=== PATIENT | female | born 1950 | race African-American/Black ===

== ENCOUNTER 2017-01-18 17:29 | Inpatient (IN) | payer OTHER ==
[~2017-01-18] VITALS: Ht 149.9 cm; Wt 63.5 kg
[2017-01-18 17:29] VITALS: BP_SYST 139
[2017-01-18] MEDS ORDERED: NACL 0.9% 1,000 ML IV SCH (17:33)
[2017-01-18] MEDS ORDERED: IPRATROPIUM/ALBUTEROL SULFATE 3 ML AMPUL.NEB INH ONE (17:45)
[2017-01-18] MEDS ORDERED: DEXTROSE 50% JECT 50 ML DISP.SYRIN IVP ONE (17:45)
[2017-01-18] MEDS ORDERED: LORazepam 2 MG/ML VIAL (FOR ER USE) IVP ONE (18:00)
[2017-01-18 18:50] LABS: HEMOGLOBIN 7.8 g/dL (12.0-16.0)
[2017-01-18 18:59] LABS: MEAN CORPUSCULAR HEMOGLOBIN 28 pg (27-31); MEAN CORPUSCULAR HGB CONC 33 % (32-36); MEAN CORPUSCULAR VOLUME 86 fL (79.0-98.0); RED CELL DISTRIBUTION WIDTH 19.6 % (9.0-15.0); WHITE BLOOD COUNT (AUTO) 15.7 K/uL (4.8-10.8)
[2017-01-18 19:02] LABS: PLATELET COUNT (AUTO) 123 K/uL (130-430)
[2017-01-18 19:05] LABS: INR 1.1 (0.8-1.2); PROTHROMBIN TIME 12.4 SECS (9.5-12.5)
[2017-01-18 19:14] LABS: CALCIUM 7.1 mg/dL (8.4-11.0); CREATININE 2.3 mg/dL (0.55-1.30); POTASSIUM 4.4 mmol/L (3.5-5.1)
[2017-01-18 19:14] LABS: BAND % (MANUAL) 5 % (0-6); BASOPHILS % (MANUAL) 0 % (0-2); EOSINOPHILS % (MANUAL) 0 % (0-7); LYMPHOCYTES % (MANUAL) 3 % (20-46); MONOCYTES % (MANUAL) 1 % (0-11)
[2017-01-18] MEDS ORDERED: NACL 0.9% 1,500 ML IV ONE (19:15)
[2017-01-18] MEDS ORDERED: cefTRIAXone 1 GM IVPB PREMIX 50 ML IV ONE ×2 (19:15→19:21)
[2017-01-18 19:33] LABS: ALBUMIN 2.1 g/dL (3.4-4.8); TOTAL BILIRUBIN 0.4 mg/dL (0.0-1.0); TOTAL PROTEIN, SERUM 6.7 g/dL (6.4-8.3)
[2017-01-18] MEDS ORDERED: IPRATROPIUM/ALBUTEROL SULFATE 3 ML AMPUL.NEB INH PRN (19:45)
[2017-01-18 19:55] LABS: BILIRUBIN,URINE NEGATIVE (NEGATIVE); CLARITY/URINE SL HAZY (CLEAR); COLOR,URINE YELLOW (YELLOW); GLUCOSE,URINE NEGATIVE (NEGATIVE); KETONES,URINE NEGATIVE (NEGATIVE); LEUKOCYTE ESTERASE ,URINE NEGATIVE (NEGATIVE); NITRITE, URINE NEGATIVE (NEGATIVE); PH,URINE 7.5 (5.0-8.0); PROTEIN URINE 1+ (NEGATIVE); UROBILINOGEN,URINE 0.2 (0.2-1.0)
[2017-01-18 20:03] LABS: BLOOD, URINE TRACE (NEGATIVE)
[2017-01-18 20:07] LABS: RBC,URINE NONE SEEN /HPF (0-3)
[2017-01-18 20:08] LABS: BACTERIA,URINE FEW /HPF (None Seen); WBC,URINE 0-3 /HPF (0-3); YEAST,URINE Moderate /HPF (None Seen)
[2017-01-18 20:09] LABS: MUCUS,URINE None Seen /LPF (None Seen)
[2017-01-18] MEDS ORDERED: ASCO500T20 PO (20:18)
[2017-01-18] MEDS ORDERED: PROC10TA PO (20:19)
[2017-01-18] MEDS ORDERED: DOCU250C PO (20:19)
[2017-01-18] MEDS ORDERED: APIX2.5T PO (20:20)
[2017-01-18] MEDS ORDERED: IPRA3AMP9 INH ×2 (20:20)
[2017-01-18] MEDS ORDERED: FERR-57 PO (20:21)
[2017-01-18] MEDS ORDERED: INSU100V11 SQ (20:21)
[2017-01-18] MEDS ORDERED: LORA-258 PO (20:22)
[2017-01-18] MEDS ORDERED: MELA3TAB55 PO (20:23)
[2017-01-18] MEDS ORDERED: MULT PO (20:23)
[2017-01-18] MEDS ORDERED: ANT30 PO (20:24)
[2017-01-18] MEDS ORDERED: HYDR-4100 PO (20:25)
[2017-01-18] MEDS ORDERED: OXYB5TAB11 PO (20:26)
[2017-01-18] MEDS ORDERED: ACET-2165 PO (20:27)
[2017-01-18] MEDS ORDERED: NAPH1POW3 PO (20:28)
[2017-01-18] MEDS ORDERED: SSNOVOLOG SUBCUT (20:30)
[2017-01-18 21:10] VITALS: BP_SYST 135
[2017-01-18] MEDS ORDERED: MORPHINE 2 MG/ML INJ. SYRINGE IVP PRN (21:15)
[2017-01-18] MEDS ORDERED: HYDROcodone/ACETAMIN 10-325 MG TAB PO PRN (21:15)
[2017-01-18] MEDS ORDERED: ACETAMINOPHEN 325 MG TABLET PO ONE (21:15)
[2017-01-18 22:00] VITALS: BP_SYST 133
[2017-01-18] MEDS ORDERED: D5W 1,000 ML IV PRN (22:38)
[2017-01-18] MEDS ORDERED: GLUCOSE 15 GM GEL (in 37.5 GM TUBE) PO PRN ×2 (22:45)
[2017-01-18] MEDS ORDERED: DEXTROSE 50% JECT 50 ML DISP.SYRIN IVP PRN ×2 (22:45)
[2017-01-18 22:49] VITALS: BP_SYST 135
[2017-01-18] MEDS: NACL 0.9% 1,000 ML IV SCH (22:55)
[2017-01-18] MEDS: IPRATROPIUM/ALBUTEROL SULFATE 3 ML AMPUL.NEB INH SCH (23:53)
[2017-01-19] VITALS (7 sets, daily range): BP systolic 92–139
[2017-01-19] MEDS: IPRATROPIUM/ALBUTEROL SULFATE 3 ML AMPUL.NEB INH SCH ×6 (03:41→23:29)
[2017-01-19] MEDS: DOCUSATE SODIUM 100 MG CAPSULE PO SCH ×2 (08:55→20:46)
[2017-01-19] MEDS ORDERED: HEPARIN SODIUM,PORCINE 5000 UNITS/ML VIAL SUBCUT SCH (09:00)
[2017-01-19] MEDS ORDERED: NACL 0.9% 1,000 ML IV ONE ×2 (10:30→11:30)
[2017-01-19] MEDS ORDERED: cefTRIAXone 1 GM in D5W 50 ML IV SCH (10:30)
[2017-01-19] MEDS: NACL 0.9% 1,000 ML IV SCH (10:36)
[2017-01-19] MEDS ORDERED: ACETAMINOPHEN 325 MG TABLET PO PRN (10:45)
[2017-01-19] MEDS ORDERED: MAG-AL HYDROX/SIMETH 30 ML UDC PO PRN (10:45)
[2017-01-19] MEDS ORDERED: LORazepam 1 MG TABLET PO PRN (10:45)
[2017-01-19] MEDS ORDERED: PROCHLORPERAZINE MALEATE 10 MG TABLET PO PRN ×2 (10:45→17:30)
[2017-01-19 11:54] LABS: CREATININE 1.95 mg/dL (0.55-1.30)
[2017-01-19] MEDS: FLUCONAZOLE 100 mg/ NS 50 ML IV SCH (12:00)
[2017-01-19] MEDS: PIPERACILLIN/TAZO 2.25G/DEX-IS 50 ML IV SCH ×2 (12:00→17:37)
[2017-01-19 12:55] LABS: MEAN CORPUSCULAR HEMOGLOBIN 29 pg (27-31); MEAN CORPUSCULAR HGB CONC 33 % (32-36); MEAN CORPUSCULAR VOLUME 87 fL (79.0-98.0); PLATELET COUNT (AUTO) 105 K/uL (130-430); RED BLOOD CELL COUNT(AUTO) 2.31 MIL/uL (4.2-6.2); RED CELL DISTRIBUTION WIDTH 20.3 % (9.0-15.0); WHITE BLOOD COUNT (AUTO) 12.5 K/uL (4.8-10.8)
[2017-01-19 12:57] LABS: HEMATOCRIT 20.1 % (36-48); HEMOGLOBIN 6.6 g/dL (12.0-16.0)
[2017-01-19 12:58] LABS: PHOSPHORUS 3.3 mg/dL (2.7-4.5); POTASSIUM 4.6 mmol/L (3.5-5.1)
[2017-01-19 13:04] LABS: CALCIUM 6.6 mg/dL (8.4-11.0)
[2017-01-19 13:30] LABS: BAND % (MANUAL) 2 % (0-6); BASOPHILS % (MANUAL) 0 % (0-2); EOSINOPHILS % (MANUAL) 0 % (0-7); LYMPHOCYTES % (MANUAL) 1 % (20-46); MONOCYTES % (MANUAL) 0 % (0-11)
[2017-01-19] MEDS ORDERED: ACETAMINOPHEN 325 MG TABLET PO ONE (14:00)
[2017-01-19] MEDS ORDERED: POTASSIUM CHLORIDE 20 MEQ TAB.PRT.SR PO ONE (17:00)
[2017-01-19] MEDS: INSULIN ASPART 100 UNITS/ML, 10 ML VIAL (NovoLOG) SUBCUT PRN ×2 (17:39→20:53)
[2017-01-19] MEDS ORDERED: FUROSEMIDE 20 MG/2 ML VIAL IVP ONE (18:00)
[2017-01-19] MEDS ORDERED: *HEPARIN PER PHARMACY XX ONE (18:15)
[2017-01-19] MEDS ORDERED: HEPARIN 25,000 UNITS/D5W 250ML 250 ML IV PRN (18:15)
[2017-01-19] MEDS ORDERED: HEPARIN 25,000 UNITS/D5W 250ML 250 ML IV ONE (18:31)
[2017-01-19] MEDS ORDERED: HEPARIN SODIUM,PORCINE 5000 UNITS/ML VIAL SUBCUT ONE (18:45)
[2017-01-19] MEDS ORDERED: HEPARIN SODIUM,PORCINE 5000 UNITS/ML VIAL ONE (18:57)
[2017-01-19] MEDS ORDERED: HEPARIN SODIUM,PORCINE 3000 UNITS/0.6 ML BOLUS IVP PRN (19:15)
[2017-01-19] MEDS: BUDESONIDE 0.5 MG/2 ML AMPUL.NEB INH SCH (20:00)
[2017-01-19] MEDS: FERROUS SULFATE 325 MG TABLET.DR PO SCH (20:46)
[2017-01-19] MEDS: CALCIUM CARBONATE/VITAMIN D3 1 TAB TABLET PO SCH (20:47)
[2017-01-19] MEDS: OXYBUTYNIN CHLORIDE 5 MG TABLET PO SCH (20:47)
[2017-01-19] MEDS ORDERED: APIXABAN 2.5 MG TABLET PO SCH (21:00)
[2017-01-20 00:43] VITALS: BP_SYST 127
[2017-01-20 01:34] LABS: URINE SODIUM, RANDOM 28 mmol/L (40-220)
[2017-01-20] MEDS: HEPARIN SODIUM,PORCINE 2000 UNITS/0.4 ML BOLUS IVP PRN (02:10)
[2017-01-20] MEDS: HEPARIN 25,000 UNITS in 250 ML PREMIX IV PRN ×3 (02:12→16:41)
[2017-01-20] MEDS ORDERED: PIPERACILLIN/TAZOBACTAM 2.25 GM VIAL IV ONE (02:17)
[2017-01-20] MEDS: IPRATROPIUM/ALBUTEROL SULFATE 3 ML AMPUL.NEB INH SCH ×6 (03:18→23:33)
[2017-01-20 03:54] VITALS: BP_SYST 126
[2017-01-20] MEDS: NACL 0.9% 1,000 ML IV SCH ×2 (05:28→21:17)
[2017-01-20] MEDS: PIPERACILLIN/TAZO 2.25G/DEX-IS 50 ML IV SCH ×4 (05:28→18:00)
[2017-01-20] MEDS: BUDESONIDE 0.5 MG/2 ML AMPUL.NEB INH SCH ×2 (07:21→21:00)
[2017-01-20 07:33] LABS: ALBUMIN 1.9 g/dL (3.4-4.8); CREATININE 1.88 mg/dL (0.55-1.30); POTASSIUM 4.3 mmol/L (3.5-5.1); TOTAL BILIRUBIN 0.9 mg/dL (0.0-1.0); TOTAL PROTEIN, SERUM 5.9 g/dL (6.4-8.3)
[2017-01-20 07:52] VITALS: BP_SYST 135
[2017-01-20 07:55] LABS: BASOPHILS % (AUTO) 0.4 % (0.0-2.0); EOSINOPHILS % (AUTO) 0.2 % (0.0-4.0); HEMATOCRIT 24.9 % (36-48); HEMOGLOBIN 8.3 g/dL (12.0-16.0); LYMPHOCYTES # (AUTO) 0.8 K/uL (1.0-5.5); LYMPHOCYTES % (AUTO) 6.4 % (20.5-51.5); MEAN CORPUSCULAR HEMOGLOBIN 29 pg (27-31); MEAN CORPUSCULAR HGB CONC 33 % (32-36); MEAN CORPUSCULAR VOLUME 85 fL (79.0-98.0); MONOCYTES # (AUTO) 0.4 K/uL (0.0-1.0); MONOCYTES % (AUTO) 3.1 % (1.7-9.3); NEUTROPHILS # (AUTO) 10.7 K/uL (1.8-7.7); NEUTROPHILS % (AUTO) 89.9 % (40.0-70.0); PLATELET COUNT (AUTO) 105 K/uL (130-430); RED BLOOD CELL COUNT(AUTO) 2.92 MIL/uL (4.2-6.2); WHITE BLOOD COUNT (AUTO) 11.9 K/uL (4.8-10.8)
[2017-01-20 07:57] LABS: CALCIUM 6.5 mg/dL (8.4-11.0)
[2017-01-20] MEDS ORDERED: *HEPARIN PER PHARMACY XX ONE (09:00)
[2017-01-20] MEDS: MULTIVITAMINS TAB 1 TABLET PO SCH ×2 (09:11)
[2017-01-20] MEDS: CALCIUM CARBONATE/VITAMIN D3 1 TAB TABLET PO SCH ×2 (09:11→21:18)
[2017-01-20] MEDS: OXYBUTYNIN CHLORIDE 5 MG TABLET PO SCH ×2 (09:11→21:18)
[2017-01-20] MEDS: ASCORBIC ACID 500 MG TABLET PO SCH (09:11)
[2017-01-20] MEDS: DOCUSATE SODIUM 100 MG CAPSULE PO SCH ×2 (09:11→21:18)
[2017-01-20] MEDS: FERROUS SULFATE 325 MG TABLET.DR PO SCH ×2 (09:11→21:18)
[2017-01-20] MEDS: FLUCONAZOLE 100 mg/ NS 50 ML IV SCH (11:03)
[2017-01-20 11:52] VITALS: BP_SYST 127
[2017-01-20] MEDS: INSULIN ASPART 100 UNITS/ML, 10 ML VIAL (NovoLOG) SUBCUT PRN (12:09)
[2017-01-20 16:19] VITALS: BP_SYST 130
[2017-01-20] MEDS ORDERED: MAGNESIUM SULFATE 1 GM/2 ML VIAL IVP ONE (16:30)
[2017-01-20] MEDS ORDERED: CALCIUM GLUCONATE 2 GM in NS 100 ML IV ONE (16:45)
[2017-01-20] MEDS ORDERED: FUROSEMIDE 100 MG in D5W 90 ML IV SCH (16:45)
[2017-01-20] MEDS: ALBUMIN HUMAN 25% 100 ML IV SCH ×2 (17:45→23:26)
[2017-01-20] MEDS ORDERED: MAGNESIUM SULFATE 50 ML IV ONE (18:57)
[2017-01-20] MEDS ORDERED: *HEPARIN PER PHARMACY XX PRN (19:15)
[2017-01-20] MEDS ORDERED: MAG-AL HYDROX/SIMETH 30 ML UDC PO PRN (19:30)
[2017-01-20 20:00] VITALS: BP_SYST 133
[2017-01-20] MEDS: ONDANSETRON HCL 4 MG/2 ML VIAL IVP PRN (20:29)
[2017-01-20] MEDS: ZOLPIDEM TARTRATE 5 MG TABLET PO PRN (23:13)
[2017-01-21] VITALS (8 sets, daily range): BP systolic 123–144
[2017-01-21] MEDS: PIPERACILLIN/TAZO 2.25G/DEX-IS 50 ML IV SCH ×5 (00:27→23:54)
[2017-01-21] MEDS: IPRATROPIUM/ALBUTEROL SULFATE 3 ML AMPUL.NEB INH SCH ×6 (03:00→23:36)
[2017-01-21] MEDS: ALBUMIN HUMAN 25% 100 ML IV SCH (04:42)
[2017-01-21] MEDS: NACL 0.9% 1,000 ML IV SCH ×2 (05:10→23:55)
[2017-01-21] MEDS: ONDANSETRON HCL 4 MG/2 ML VIAL IVP PRN (06:32)
[2017-01-21] MEDS: BUDESONIDE 0.5 MG/2 ML AMPUL.NEB INH SCH ×2 (07:07→21:29)
[2017-01-21 07:40] LABS: BASOPHILS % (AUTO) 0.1 % (0.0-2.0); EOSINOPHILS % (AUTO) 0.2 % (0.0-4.0); HEMOGLOBIN 7.5 g/dL (12.0-16.0); LYMPHOCYTES % (AUTO) 10.7 % (20.5-51.5); MEAN CORPUSCULAR HEMOGLOBIN 28 pg (27-31); MEAN CORPUSCULAR HGB CONC 33 % (32-36); MEAN CORPUSCULAR VOLUME 85 fL (79.0-98.0); MONOCYTES # (AUTO) 0.3 K/uL (0.0-1.0); MONOCYTES % (AUTO) 3.2 % (1.7-9.3); NEUTROPHILS # (AUTO) 8.4 K/uL (1.8-7.7); NEUTROPHILS % (AUTO) 85.8 % (40.0-70.0); PLATELET COUNT (AUTO) 96 K/uL (130-430); RED CELL DISTRIBUTION WIDTH 16.9 % (9.0-15.0); WHITE BLOOD COUNT (AUTO) 9.7 K/uL (4.8-10.8)
[2017-01-21 07:46] LABS: CALCIUM 7.2 mg/dL (8.4-11.0); CREATININE 1.79 mg/dL (0.55-1.30); POTASSIUM 4.2 mmol/L (3.5-5.1)
[2017-01-21] MEDS ORDERED: FUROSEMIDE 20 MG/2 ML VIAL IVP ONE (09:15)
[2017-01-21] MEDS: FERROUS SULFATE 325 MG TABLET.DR PO SCH ×2 (09:42→20:54)
[2017-01-21] MEDS: OXYBUTYNIN CHLORIDE 5 MG TABLET PO SCH ×2 (09:42→20:54)
[2017-01-21] MEDS: MULTIVITAMINS TAB 1 TABLET PO SCH ×2 (09:42→09:43)
[2017-01-21] MEDS: CALCIUM CARBONATE/VITAMIN D3 1 TAB TABLET PO SCH ×2 (09:43→20:54)
[2017-01-21] MEDS: DOCUSATE SODIUM 100 MG CAPSULE PO SCH ×2 (09:43→20:54)
[2017-01-21] MEDS: ASCORBIC ACID 500 MG TABLET PO SCH (09:43)
[2017-01-21 11:13] LABS: INR 1.1 (0.8-1.2); PROTHROMBIN TIME 11.6 SECS (9.5-12.5)
[2017-01-21] MEDS: FLUCONAZOLE 100 mg/ NS 50 ML IV SCH (12:00)
[2017-01-21] MEDS ORDERED: FUROSEMIDE 100 MG in D5W 90 ML IV SCH (16:45)
[2017-01-21] MEDS ORDERED: WARFARIN SODIUM 5 MG TABLET PO SCH (18:00)
[2017-01-21] MEDS: ZOLPIDEM TARTRATE 5 MG TABLET PO PRN (23:53)
[2017-01-22] VITALS (7 sets, daily range): BP systolic 114–139
[2017-01-22] MEDS: IPRATROPIUM/ALBUTEROL SULFATE 3 ML AMPUL.NEB INH SCH ×6 (03:00→23:34)
[2017-01-22] MEDS: PIPERACILLIN/TAZO 2.25G/DEX-IS 50 ML IV SCH ×3 (05:22→17:58)
[2017-01-22 06:19] LABS: BASOPHILS % (AUTO) 0.3 % (0.0-2.0); EOSINOPHILS % (AUTO) 0.4 % (0.0-4.0); HEMATOCRIT 25.1 % (36-48); LYMPHOCYTES # (AUTO) 0.2 K/uL (1.0-5.5); LYMPHOCYTES % (AUTO) 1.6 % (20.5-51.5); MEAN CORPUSCULAR HEMOGLOBIN 27 pg (27-31); MEAN CORPUSCULAR HGB CONC 32 % (32-36); MEAN CORPUSCULAR VOLUME 86 fL (79.0-98.0); MONOCYTES # (AUTO) 0.2 K/uL (0.0-1.0); NEUTROPHILS % (AUTO) 95.7 % (40.0-70.0); PLATELET COUNT (AUTO) 122 K/uL (130-430); RED BLOOD CELL COUNT(AUTO) 2.94 MIL/uL (4.2-6.2); RED CELL DISTRIBUTION WIDTH 17.1 % (9.0-15.0); WHITE BLOOD COUNT (AUTO) 10.4 K/uL (4.8-10.8)
[2017-01-22 06:47] LABS: CALCIUM 7.1 mg/dL (8.4-11.0); CREATININE 1.85 mg/dL (0.55-1.30); POTASSIUM 3.9 mmol/L (3.5-5.1)
[2017-01-22 06:52] LABS: INR 1.1 (0.8-1.2); PROTHROMBIN TIME 11.6 SECS (9.5-12.5)
[2017-01-22] MEDS ORDERED: MIDAZOLAM HCL 5 MG/5 ML VIAL ONE (07:38)
[2017-01-22] MEDS: fentaNYL CITRATE/PF 100 MCG/2 ML AMP ONE (08:01)
[2017-01-22] MEDS: BUDESONIDE 0.5 MG/2 ML AMPUL.NEB INH SCH ×2 (09:00→21:36)
[2017-01-22] MEDS: MULTIVITAMINS TAB 1 TABLET PO SCH ×2 (09:00→10:38)
[2017-01-22] MEDS ORDERED: COMMUNICATION ORDER XX ONE (10:30)
[2017-01-22] MEDS: CALCIUM CARBONATE/VITAMIN D3 1 TAB TABLET PO SCH ×2 (10:37→21:18)
[2017-01-22] MEDS: DOCUSATE SODIUM 100 MG CAPSULE PO SCH ×2 (10:38→21:18)
[2017-01-22] MEDS: OXYBUTYNIN CHLORIDE 5 MG TABLET PO SCH ×2 (10:39→21:18)
[2017-01-22] MEDS: FERROUS SULFATE 325 MG TABLET.DR PO SCH ×2 (10:39→21:23)
[2017-01-22] MEDS: ASCORBIC ACID 500 MG TABLET PO SCH (10:39)
[2017-01-22] MEDS: PANTOPRAZOLE SODIUM 40 MG/VIAL (PROTONIX) IVP SCH (10:40)
[2017-01-22] MEDS: FLUCONAZOLE 100 mg/ NS 50 ML IV SCH (12:35)
[2017-01-22] MEDS ORDERED: HEPARIN SODIUM,PORCINE 5000 UNITS/ML VIAL IVP ONE (16:00)
[2017-01-22] MEDS: HEPARIN 25,000 UNITS in 250 ML PREMIX IV PRN (16:42)
[2017-01-22] MEDS: NACL 0.9% 1,000 ML IV SCH (16:59)
[2017-01-22] MEDS ORDERED: BISACODYL 5 MG TABLET.DR (DULCOLAX) PO ONE (17:00)
[2017-01-22] MEDS ORDERED: GOLYTELY / COLYTE SOLUTION 4 LITERS PO ONE (18:00)
[2017-01-22] MEDS ORDERED: BUDESONIDE 0.5 MG/2 ML AMPUL.NEB ONE (21:40)
[2017-01-22] MEDS: INSULIN ASPART 100 UNITS/ML, 10 ML VIAL (NovoLOG) SUBCUT PRN (22:25)
[2017-01-23 00:54] VITALS: BP_SYST 123
[2017-01-23] MEDS ORDERED: BISACODYL 5 MG TABLET.DR (DULCOLAX) PO ONE (01:00)
[2017-01-23] MEDS: PIPERACILLIN/TAZO 2.25G/DEX-IS 50 ML IV SCH ×4 (01:51→18:11)
[2017-01-23] MEDS: HEPARIN 25,000 UNITS in 250 ML PREMIX IV PRN (03:05)
[2017-01-23] MEDS: IPRATROPIUM/ALBUTEROL SULFATE 3 ML AMPUL.NEB INH SCH ×6 (03:51→23:27)
[2017-01-23 04:00] VITALS: BP_SYST 124
[2017-01-23 06:34] LABS: HEMOGLOBIN 8.1 g/dL (12.0-16.0); RED CELL DISTRIBUTION WIDTH 17.6 % (9.0-15.0)
[2017-01-23 06:50] LABS: BASOPHILS % (AUTO) 0.4 % (0.0-2.0); EOSINOPHILS # (AUTO) 0.1 K/uL (0.0-0.4); EOSINOPHILS % (AUTO) 0.6 % (0.0-4.0); HEMATOCRIT 25.1 % (36-48); LYMPHOCYTES # (AUTO) 0.2 K/uL (1.0-5.5); LYMPHOCYTES % (AUTO) 1.9 % (20.5-51.5); MEAN CORPUSCULAR HEMOGLOBIN 28 pg (27-31); MEAN CORPUSCULAR HGB CONC 33 % (32-36); MEAN CORPUSCULAR VOLUME 85 fL (79.0-98.0); MONOCYTES # (AUTO) 0.5 K/uL (0.0-1.0); MONOCYTES % (AUTO) 4.6 % (1.7-9.3); NEUTROPHILS % (AUTO) 92.5 % (40.0-70.0); PLATELET COUNT (AUTO) 141 K/uL (130-430); RED BLOOD CELL COUNT(AUTO) 2.94 MIL/uL (4.2-6.2); WHITE BLOOD COUNT (AUTO) 10.8 K/uL (4.8-10.8)
[2017-01-23 07:00] LABS: CREATININE 1.77 mg/dL (0.55-1.30); POTASSIUM 3.3 mmol/L (3.5-5.1)
[2017-01-23 07:09] LABS: INR 1.1 (0.8-1.2)
[2017-01-23 07:28] LABS: CALCIUM 6.9 mg/dL (8.4-11.0)
[2017-01-23] MEDS ORDERED: CALCIUM GLUCONATE 1 GM in NS 100 ML IV ONE (08:30)
[2017-01-23 08:50] VITALS: BP_SYST 128
[2017-01-23] MEDS: ASCORBIC ACID 500 MG TABLET PO SCH (09:00)
[2017-01-23] MEDS: OXYBUTYNIN CHLORIDE 5 MG TABLET PO SCH ×2 (09:00→21:35)
[2017-01-23] MEDS: DOCUSATE SODIUM 100 MG CAPSULE PO SCH ×3 (09:00→21:34)
[2017-01-23] MEDS: MULTIVITAMINS TAB 1 TABLET PO SCH ×2 (09:00)
[2017-01-23] MEDS: CALCIUM CARBONATE/VITAMIN D3 1 TAB TABLET PO SCH ×2 (09:00→21:35)
[2017-01-23] MEDS: FERROUS SULFATE 325 MG TABLET.DR PO SCH ×2 (09:00→21:34)
[2017-01-23] MEDS: BUDESONIDE 0.5 MG/2 ML AMPUL.NEB INH SCH ×2 (09:48→21:34)
[2017-01-23] MEDS: PANTOPRAZOLE SODIUM 40 MG/VIAL (PROTONIX) IVP SCH (10:54)
[2017-01-23] MEDS: FLUCONAZOLE 100 mg/ NS 50 ML IV SCH (11:23)
[2017-01-23] MEDS ORDERED: POTASSIUM CHLORIDE 20 MEQ in NS 250 ML IV ONE (11:45)
[2017-01-23] MEDS ORDERED: fentaNYL CITRATE/PF 100 MCG/2 ML AMP ONE (11:57)
[2017-01-23] MEDS ORDERED: MIDAZOLAM HCL 5 MG/5 ML VIAL ONE (11:57)
[2017-01-23 12:00] VITALS: BP_SYST 132
[2017-01-23] MEDS ORDERED: SIMETHICONE 40 MG/0.6 ML ML ONE (12:02)
[2017-01-23] MEDS: D5NS 1,000 ML IV SCH (12:30)
[2017-01-23] MEDS ORDERED: fentaNYL CITRATE/PF 100 MCG/2 ML AMP IVP ONE (15:34)
[2017-01-23] MEDS ORDERED: MIDAZOLAM HCL 5 MG/5 ML VIAL IVP ONE ×2 (15:34→15:37)
[2017-01-23] MEDS: fentaNYL CITRATE/PF 100 MCG/2 ML AMP ONE (15:38)
[2017-01-23 17:34] VITALS: BP_SYST 120
[2017-01-23] MEDS ORDERED: GASTROGRAFIN 120 ML ONE (17:46)
[2017-01-23] MEDS: WARFARIN SODIUM 5 MG TABLET PO SCH (18:12)
[2017-01-23] MEDS: INSULIN ASPART 100 UNITS/ML, 10 ML VIAL (NovoLOG) SUBCUT PRN (21:44)
[2017-01-23] MEDS: HEPARIN SODIUM,PORCINE 2000 UNITS/0.4 ML BOLUS IVP PRN (22:30)
[2017-01-24] VITALS (7 sets, daily range): BP systolic 115–135
[2017-01-24] MEDS: PIPERACILLIN/TAZO 2.25G/DEX-IS 50 ML IV SCH ×5 (00:49→22:54)
[2017-01-24] MEDS: IPRATROPIUM/ALBUTEROL SULFATE 3 ML AMPUL.NEB INH SCH ×6 (03:20→23:30)
[2017-01-24 06:31] LABS: MEAN CORPUSCULAR HGB CONC 32 % (32-36); WHITE BLOOD COUNT (AUTO) 9.5 K/uL (4.8-10.8)
[2017-01-24 06:38] LABS: INR 1.1 (0.8-1.2); PROTHROMBIN TIME 12.4 SECS (9.5-12.5)
[2017-01-24 06:47] LABS: ALBUMIN 2.2 g/dL (3.4-4.8); CREATININE 1.65 mg/dL (0.55-1.30); POTASSIUM 3.2 mmol/L (3.5-5.1); TOTAL BILIRUBIN 0.5 mg/dL (0.0-1.0); TOTAL PROTEIN, SERUM 5.8 g/dL (6.4-8.3)
[2017-01-24 06:51] LABS: BASOPHILS % (AUTO) 0.2 % (0.0-2.0); EOSINOPHILS # (AUTO) 0.1 K/uL (0.0-0.4); EOSINOPHILS % (AUTO) 0.8 % (0.0-4.0); HEMATOCRIT 24.8 % (36-48); HEMOGLOBIN 7.9 g/dL (12.0-16.0); LYMPHOCYTES # (AUTO) 0.8 K/uL (1.0-5.5); LYMPHOCYTES % (AUTO) 8.5 % (20.5-51.5); MEAN CORPUSCULAR HEMOGLOBIN 27 pg (27-31); MEAN CORPUSCULAR VOLUME 84 fL (79.0-98.0); MONOCYTES # (AUTO) 0.5 K/uL (0.0-1.0); MONOCYTES % (AUTO) 4.9 % (1.7-9.3); NEUTROPHILS # (AUTO) 8.1 K/uL (1.8-7.7); NEUTROPHILS % (AUTO) 85.6 % (40.0-70.0); PLATELET COUNT (AUTO) 147 K/uL (130-430); RED BLOOD CELL COUNT(AUTO) 2.94 MIL/uL (4.2-6.2)
[2017-01-24] MEDS: PANTOPRAZOLE SODIUM 40 MG/VIAL (PROTONIX) IVP SCH (09:00)
[2017-01-24] MEDS: DOCUSATE SODIUM 100 MG CAPSULE PO SCH ×2 (09:00→22:40)
[2017-01-24] MEDS: MULTIVITAMINS TAB 1 TABLET PO SCH ×2 (09:00)
[2017-01-24] MEDS: ASCORBIC ACID 500 MG TABLET PO SCH (09:00)
[2017-01-24] MEDS: OXYBUTYNIN CHLORIDE 5 MG TABLET PO SCH ×2 (09:00→22:42)
[2017-01-24] MEDS: CALCIUM CARBONATE/VITAMIN D3 1 TAB TABLET PO SCH ×2 (09:00→22:41)
[2017-01-24] MEDS: FERROUS SULFATE 325 MG TABLET.DR PO SCH ×2 (09:00→22:40)
[2017-01-24] MEDS ORDERED: LORazepam 2 MG/ML VIAL IVP PRN (10:15)
[2017-01-24] MEDS ORDERED: ONDANSETRON HCL 4 MG/2 ML VIAL IVP PRN (10:15)
[2017-01-24] MEDS ORDERED: MAGNESIUM SULFATE 50 ML IV PRN (10:15)
[2017-01-24] MEDS ORDERED: DOCUSATE SODIUM 100 MG CAPSULE PO PRN (10:15)
[2017-01-24 10:57] LABS: RETICULOCYTE COUNT 1.4 % (0.5-1.5)
[2017-01-24] MEDS: HEPARIN 25,000 UNITS in 250 ML PREMIX IV PRN (11:09)
[2017-01-24] MEDS: D5NS 1,000 ML IV SCH ×2 (11:11→16:21)
[2017-01-24] MEDS: BUDESONIDE 0.5 MG/2 ML AMPUL.NEB INH SCH ×2 (11:26→21:05)
[2017-01-24] MEDS: FLUCONAZOLE 100 mg/ NS 50 ML IV SCH (11:58)
[2017-01-24] MEDS ORDERED: POTASSIUM CHLORIDE 40 MEQ in NS 250 ML IV ONE (14:00)
[2017-01-24] MEDS ORDERED: FUROSEMIDE 20 MG/2 ML VIAL IVP ONE (14:00)
[2017-01-24] MEDS: WARFARIN SODIUM 5 MG TABLET PO SCH (17:41)
[2017-01-24] MEDS: ZOLPIDEM TARTRATE 5 MG TABLET PO PRN (22:41)
[2017-01-24] MEDS: INSULIN ASPART 100 UNITS/ML, 10 ML VIAL (NovoLOG) SUBCUT PRN (22:53)
[2017-01-25 00:25] VITALS: BP_SYST 143
[2017-01-25] MEDS: IPRATROPIUM/ALBUTEROL SULFATE 3 ML AMPUL.NEB INH SCH ×6 (03:33→23:25)
[2017-01-25 03:40] VITALS: BP_SYST 138
[2017-01-25] MEDS: PIPERACILLIN/TAZO 2.25G/DEX-IS 50 ML IV SCH ×4 (05:44→23:36)
[2017-01-25] MEDS: D5NS 1,000 ML IV SCH (05:45)
[2017-01-25 06:39] LABS: CREATININE 1.65 mg/dL (0.55-1.30); POTASSIUM 3.2 mmol/L (3.5-5.1)
[2017-01-25 06:40] LABS: BASOPHILS % (AUTO) 0.3 % (0.0-2.0); EOSINOPHILS # (AUTO) 0.1 K/uL (0.0-0.4); EOSINOPHILS % (AUTO) 0.8 % (0.0-4.0); HEMATOCRIT 25.5 % (36-48); HEMOGLOBIN 8.1 g/dL (12.0-16.0); LYMPHOCYTES # (AUTO) 0.9 K/uL (1.0-5.5); LYMPHOCYTES % (AUTO) 8.9 % (20.5-51.5); MEAN CORPUSCULAR HEMOGLOBIN 28 pg (27-31); MEAN CORPUSCULAR HGB CONC 32 % (32-36); MEAN CORPUSCULAR VOLUME 87 fL (79.0-98.0); MONOCYTES # (AUTO) 0.6 K/uL (0.0-1.0); MONOCYTES % (AUTO) 5.4 % (1.7-9.3); NEUTROPHILS # (AUTO) 9.1 K/uL (1.8-7.7); NEUTROPHILS % (AUTO) 84.6 % (40.0-70.0); PLATELET COUNT (AUTO) 156 K/uL (130-430); RED BLOOD CELL COUNT(AUTO) 2.93 MIL/uL (4.2-6.2); RED CELL DISTRIBUTION WIDTH 17.8 % (9.0-15.0); WHITE BLOOD COUNT (AUTO) 10.7 K/uL (4.8-10.8)
[2017-01-25 08:00] VITALS: BP_SYST 134
[2017-01-25] MEDS: BUDESONIDE 0.5 MG/2 ML AMPUL.NEB INH SCH ×2 (08:01→23:25)
[2017-01-25] MEDS: DOCUSATE SODIUM 100 MG CAPSULE PO SCH ×2 (08:14→21:07)
[2017-01-25] MEDS: PANTOPRAZOLE SODIUM 40 MG/VIAL (PROTONIX) IVP SCH (08:14)
[2017-01-25] MEDS: OXYBUTYNIN CHLORIDE 5 MG TABLET PO SCH ×2 (08:15→21:07)
[2017-01-25] MEDS: CALCIUM CARBONATE/VITAMIN D3 1 TAB TABLET PO SCH ×2 (08:15→21:07)
[2017-01-25] MEDS: ASCORBIC ACID 500 MG TABLET PO SCH (08:15)
[2017-01-25] MEDS: MULTIVITAMINS TAB 1 TABLET PO SCH (08:16)
[2017-01-25] MEDS: FERROUS SULFATE 325 MG TABLET.DR PO SCH ×2 (09:00→21:07)
[2017-01-25 09:07] LABS: CREATININE 1.59 mg/dL (0.55-1.30); POTASSIUM 3.5 mmol/L (3.5-5.1)
[2017-01-25 09:16] LABS: CALCIUM 6.6 mg/dL (8.4-11.0)
[2017-01-25 09:28] LABS: INR 1.3 (0.8-1.2); PROTHROMBIN TIME 14.7 SECS (9.5-12.5)
[2017-01-25] MEDS: INSULIN ASPART 100 UNITS/ML, 10 ML VIAL (NovoLOG) SUBCUT PRN ×2 (11:40→22:02)
[2017-01-25 12:00] VITALS: BP_SYST 133
[2017-01-25] MEDS: FLUCONAZOLE 100 mg/ NS 50 ML IV SCH (12:09)
[2017-01-25 16:00] VITALS: BP_SYST 132
[2017-01-25] MEDS: WARFARIN SODIUM 5 MG TABLET PO SCH (17:43)
[2017-01-25 20:00] VITALS: BP_SYST 132
[2017-01-25] MEDS: ZOLPIDEM TARTRATE 5 MG TABLET PO PRN (22:13)
[2017-01-25] MEDS: HEPARIN 25,000 UNITS in 250 ML PREMIX IV PRN (23:40)
[2017-01-26] VITALS (8 sets, daily range): BP systolic 110–140
[2017-01-26] MEDS: IPRATROPIUM/ALBUTEROL SULFATE 3 ML AMPUL.NEB INH SCH ×6 (02:44→23:42)
[2017-01-26] MEDS: D5NS 1,000 ML IV SCH ×3 (02:52→18:43)
[2017-01-26] MEDS: PIPERACILLIN/TAZO 2.25G/DEX-IS 50 ML IV SCH ×2 (05:10→11:46)
[2017-01-26] MEDS: INSULIN ASPART 100 UNITS/ML, 10 ML VIAL (NovoLOG) SUBCUT PRN ×2 (06:25→17:28)
[2017-01-26 07:15] LABS: INR 1.5 (0.8-1.2); PROTHROMBIN TIME 16.7 SECS (9.5-12.5)
[2017-01-26 07:21] LABS: CREATININE 1.56 mg/dL (0.55-1.30)
[2017-01-26 07:33] LABS: CALCIUM 6.8 mg/dL (8.4-11.0); POTASSIUM 2.8 mmol/L (3.5-5.1)
[2017-01-26] MEDS: HEPARIN SODIUM,PORCINE 2000 UNITS/0.4 ML BOLUS IVP PRN (08:10)
[2017-01-26] MEDS: HEPARIN 25,000 UNITS in 250 ML PREMIX IV PRN ×2 (08:14→16:10)
[2017-01-26] MEDS: DOCUSATE SODIUM 100 MG CAPSULE PO SCH ×2 (08:15→21:02)
[2017-01-26] MEDS: MULTIVITAMINS TAB 1 TABLET PO SCH (08:15)
[2017-01-26] MEDS: CALCIUM CARBONATE/VITAMIN D3 1 TAB TABLET PO SCH ×2 (08:15→21:02)
[2017-01-26] MEDS: FERROUS SULFATE 325 MG TABLET.DR PO SCH ×2 (08:15→21:02)
[2017-01-26] MEDS: ASCORBIC ACID 500 MG TABLET PO SCH (08:15)
[2017-01-26] MEDS: PANTOPRAZOLE SODIUM 40 MG/VIAL (PROTONIX) IVP SCH (08:16)
[2017-01-26] MEDS: OXYBUTYNIN CHLORIDE 5 MG TABLET PO SCH ×2 (08:18→21:02)
[2017-01-26] MEDS: POTASSIUM CHLORIDE 10 MEQ TAB.PRT.SR PO PRN (08:24)
[2017-01-26] MEDS ORDERED: CALCIUM GLUCONATE 1 GM in NS 100 ML IV ONE (08:45)
[2017-01-26] MEDS: BUDESONIDE 0.5 MG/2 ML AMPUL.NEB INH SCH ×2 (09:00→20:50)
[2017-01-26] MEDS ORDERED: CALCIUM GLUCONATE 1 GM/10 ML VIAL ONE (10:06)
[2017-01-26] MEDS: WARFARIN SODIUM 5 MG TABLET PO SCH (17:27)
[2017-01-26] MEDS ORDERED: POTASSIUM CHLORIDE 20 MEQ/PKT PACKET ONE (18:43)
[2017-01-26] MEDS ORDERED: POTASSIUM CHLORIDE 20 MEQ/PKT PACKET PO ONE (18:45)
[2017-01-26] MEDS: ACETAMINOPHEN 325 MG TABLET PO PRN (22:12)
[2017-01-27] MEDS: HEPARIN 25,000 UNITS in 250 ML PREMIX IV PRN ×2 (00:02→07:56)
[2017-01-27] MEDS: IPRATROPIUM/ALBUTEROL SULFATE 3 ML AMPUL.NEB INH SCH ×6 (03:00→23:46)
[2017-01-27 04:37] VITALS: BP_SYST 120
[2017-01-27 06:38] LABS: BASOPHILS % (AUTO) 0.2 % (0.0-2.0); EOSINOPHILS # (AUTO) 0.1 K/uL (0.0-0.4); EOSINOPHILS % (AUTO) 0.5 % (0.0-4.0); HEMATOCRIT 23.7 % (36-48); HEMOGLOBIN 7.7 g/dL (12.0-16.0); LYMPHOCYTES # (AUTO) 0.3 K/uL (1.0-5.5); LYMPHOCYTES % (AUTO) 1.9 % (20.5-51.5); MEAN CORPUSCULAR HEMOGLOBIN 28 pg (27-31); MEAN CORPUSCULAR HGB CONC 33 % (32-36); MEAN CORPUSCULAR VOLUME 87 fL (79.0-98.0); MONOCYTES % (AUTO) 6.3 % (1.7-9.3); NEUTROPHILS # (AUTO) 13.9 K/uL (1.8-7.7); PLATELET COUNT (AUTO) 166 K/uL (130-430); RED BLOOD CELL COUNT(AUTO) 2.73 MIL/uL (4.2-6.2); RED CELL DISTRIBUTION WIDTH 17.6 % (9.0-15.0); WHITE BLOOD COUNT (AUTO) 15.3 K/uL (4.8-10.8)
[2017-01-27 06:45] LABS: INR 1.9 (0.8-1.2); PROTHROMBIN TIME 20.6 SECS (9.5-12.5)
[2017-01-27 06:54] LABS: CREATININE 1.53 mg/dL (0.55-1.30); POTASSIUM 3.4 mmol/L (3.5-5.1)
[2017-01-27 07:44] LABS: CALCIUM 6.7 mg/dL (8.4-11.0)
[2017-01-27 07:50] VITALS: BP_SYST 121
[2017-01-27] MEDS: ASCORBIC ACID 500 MG TABLET PO SCH (08:52)
[2017-01-27] MEDS: CALCIUM CARBONATE/VITAMIN D3 1 TAB TABLET PO SCH ×2 (08:53→21:44)
[2017-01-27] MEDS: DOCUSATE SODIUM 100 MG CAPSULE PO SCH ×2 (08:53→21:44)
[2017-01-27] MEDS: OXYBUTYNIN CHLORIDE 5 MG TABLET PO SCH ×2 (08:53→21:44)
[2017-01-27] MEDS: FERROUS SULFATE 325 MG TABLET.DR PO SCH ×2 (08:54→21:44)
[2017-01-27] MEDS: MULTIVITAMINS TAB 1 TABLET PO SCH (09:10)
[2017-01-27] MEDS: PANTOPRAZOLE SODIUM 40 MG/VIAL (PROTONIX) IVP SCH (09:11)
[2017-01-27] MEDS: BUDESONIDE 0.5 MG/2 ML AMPUL.NEB INH SCH ×2 (09:17→20:05)
[2017-01-27] MEDS: D5NS 1,000 ML IV SCH (09:21)
[2017-01-27 10:28] LABS: NEUTROPHILS % (AUTO) 91.1 % (40.0-70.0)
[2017-01-27] MEDS ORDERED: CALCIUM GLUCONATE IV ONE (11:15)
[2017-01-27] MEDS ORDERED: NS IV ONE (11:15)
[2017-01-27] MEDS ORDERED: MAGNESIUM SULFATE IV ONE (11:15)
[2017-01-27] MEDS ORDERED: POTASSIUM ACETATE IV ONE (11:15)
[2017-01-27 11:26] VITALS: BP_SYST 146
[2017-01-27] MEDS: POTASSIUM CHLORIDE 10 MEQ TAB.PRT.SR PO PRN (12:04)
[2017-01-27] MEDS: SODIUM BICARBONATE 8.4% JECT 50 MEQ in D5/0.45 NS 1,000 ML IV SCH (12:05)
[2017-01-27 13:16] LABS: FERRITIN 842 ng/mL (15-150)
[2017-01-27 16:24] VITALS: BP_SYST 130
[2017-01-27] MEDS: WARFARIN SODIUM 5 MG TABLET PO SCH (17:45)
[2017-01-27 20:15] VITALS: BP_SYST 131
[2017-01-27] MEDS: ZOLPIDEM TARTRATE 5 MG TABLET PO PRN (22:38)
[2017-01-27] MEDS: INSULIN ASPART 100 UNITS/ML, 10 ML VIAL (NovoLOG) SUBCUT PRN (22:57)
[2017-01-28] VITALS (8 sets, daily range): BP systolic 97–137
[2017-01-28] MEDS: ONDANSETRON HCL 4 MG/2 ML VIAL IVP PRN (00:54)
[2017-01-28 01:16] LABS: HAPTOGLOBIN 177 mg/dL (34-200)
[2017-01-28] MEDS: IPRATROPIUM/ALBUTEROL SULFATE 3 ML AMPUL.NEB INH SCH ×6 (03:00→23:27)
[2017-01-28] MEDS: SODIUM BICARBONATE 8.4% JECT 50 MEQ in D5/0.45 NS 1,000 ML IV SCH ×2 (06:06→09:37)
[2017-01-28 06:23] LABS: INR 2.2 (0.8-1.2); PROTHROMBIN TIME 25.1 SECS (9.5-12.5)
[2017-01-28 06:26] LABS: ALBUMIN 1.8 g/dL (3.4-4.8); CREATININE 1.47 mg/dL (0.55-1.30); PHOSPHORUS 2.2 mg/dL (2.7-4.5); POTASSIUM 3.7 mmol/L (3.5-5.1); TOTAL BILIRUBIN 0.4 mg/dL (0.0-1.0); TOTAL PROTEIN, SERUM 5.5 g/dL (6.4-8.3)
[2017-01-28 06:30] LABS: BASOPHILS % (AUTO) 0.3 % (0.0-2.0); EOSINOPHILS # (AUTO) 0.1 K/uL (0.0-0.4); EOSINOPHILS % (AUTO) 0.5 % (0.0-4.0); HEMATOCRIT 22.9 % (36-48); HEMOGLOBIN 7.5 g/dL (12.0-16.0); LYMPHOCYTES # (AUTO) 0.8 K/uL (1.0-5.5); LYMPHOCYTES % (AUTO) 5.5 % (20.5-51.5); MEAN CORPUSCULAR HEMOGLOBIN 28 pg (27-31); MEAN CORPUSCULAR HGB CONC 33 % (32-36); MEAN CORPUSCULAR VOLUME 86 fL (79.0-98.0); MONOCYTES % (AUTO) 6.4 % (1.7-9.3); NEUTROPHILS % (AUTO) 87.3 % (40.0-70.0); PLATELET COUNT (AUTO) 185 K/uL (130-430); RED BLOOD CELL COUNT(AUTO) 2.66 MIL/uL (4.2-6.2); RED CELL DISTRIBUTION WIDTH 17.6 % (9.0-15.0); WHITE BLOOD COUNT (AUTO) 14.9 K/uL (4.8-10.8)
[2017-01-28 06:53] LABS: CALCIUM 6.8 mg/dL (8.4-11.0)
[2017-01-28] MEDS: CALCIUM CARBONATE/VITAMIN D3 1 TAB TABLET PO SCH ×2 (08:30→20:55)
[2017-01-28] MEDS: DOCUSATE SODIUM 100 MG CAPSULE PO SCH ×2 (08:30→20:55)
[2017-01-28] MEDS: ASCORBIC ACID 500 MG TABLET PO SCH (08:30)
[2017-01-28] MEDS: FERROUS SULFATE 325 MG TABLET.DR PO SCH ×2 (08:30→20:55)
[2017-01-28] MEDS: MULTIVITAMINS TAB 1 TABLET PO SCH (08:30)
[2017-01-28] MEDS: OXYBUTYNIN CHLORIDE 5 MG TABLET PO SCH ×2 (08:30→20:55)
[2017-01-28] MEDS: PANTOPRAZOLE SODIUM 40 MG/VIAL (PROTONIX) IVP SCH (08:31)
[2017-01-28] MEDS: BUDESONIDE 0.5 MG/2 ML AMPUL.NEB INH SCH ×2 (09:05→20:38)
[2017-01-28] MEDS: MICAFUNGIN SODIUM 100 MG in NS 100 ML IV SCH (11:59)
[2017-01-28] MEDS: INSULIN ASPART 100 UNITS/ML, 10 ML VIAL (NovoLOG) SUBCUT PRN (12:14)
[2017-01-28] MEDS: VANCOMYCIN HCL 750 MG in NS 250 ML IV SCH (12:14)
[2017-01-28] MEDS: MORPHINE 2 MG/ML INJ. SYRINGE IVP PRN (12:53)
[2017-01-28] MEDS: WARFARIN SODIUM 5 MG TABLET PO SCH (17:45)
[2017-01-29] MEDS: IPRATROPIUM/ALBUTEROL SULFATE 3 ML AMPUL.NEB INH SCH ×5 (03:00→19:40)
[2017-01-29 03:49] VITALS: BP_SYST 133
[2017-01-29] MEDS: SODIUM BICARBONATE 8.4% JECT 50 MEQ in D5/0.45 NS 1,000 ML IV SCH (04:41)
[2017-01-29 06:22] LABS: BASOPHILS % (AUTO) 0.1 % (0.0-2.0); EOSINOPHILS # (AUTO) 0.1 K/uL (0.0-0.4); EOSINOPHILS % (AUTO) 0.6 % (0.0-4.0); HEMATOCRIT 24.8 % (36-48); HEMOGLOBIN 8.1 g/dL (12.0-16.0); LYMPHOCYTES # (AUTO) 0.8 K/uL (1.0-5.5); LYMPHOCYTES % (AUTO) 4.8 % (20.5-51.5); MEAN CORPUSCULAR HEMOGLOBIN 28 pg (27-31); MEAN CORPUSCULAR HGB CONC 33 % (32-36); MEAN CORPUSCULAR VOLUME 87 fL (79.0-98.0); MONOCYTES # (AUTO) 0.8 K/uL (0.0-1.0); MONOCYTES % (AUTO) 4.9 % (1.7-9.3); NEUTROPHILS # (AUTO) 14.4 K/uL (1.8-7.7); NEUTROPHILS % (AUTO) 89.6 % (40.0-70.0); PLATELET COUNT (AUTO) 199 K/uL (130-430); RED BLOOD CELL COUNT(AUTO) 2.86 MIL/uL (4.2-6.2); RED CELL DISTRIBUTION WIDTH 17.3 % (9.0-15.0); WHITE BLOOD COUNT (AUTO) 16.1 K/uL (4.8-10.8)
[2017-01-29 06:25] LABS: INR 2.8 (0.8-1.2)
[2017-01-29 06:29] LABS: CREATININE 1.4 mg/dL (0.55-1.30); POTASSIUM 3.7 mmol/L (3.5-5.1)
[2017-01-29 06:34] LABS: PROTHROMBIN TIME 31.2 SECS (9.5-12.5)
[2017-01-29 06:47] LABS: CALCIUM 6.9 mg/dL (8.4-11.0)
[2017-01-29] MEDS: BUDESONIDE 0.5 MG/2 ML AMPUL.NEB INH SCH ×2 (07:34→20:17)
[2017-01-29 08:57] VITALS: BP_SYST 127
[2017-01-29 09:42] VITALS: BP_SYST 120
[2017-01-29] MEDS: DOCUSATE SODIUM 100 MG CAPSULE PO SCH ×2 (11:27→21:08)
[2017-01-29] MEDS: ASCORBIC ACID 500 MG TABLET PO SCH (11:27)
[2017-01-29] MEDS: MICAFUNGIN SODIUM 100 MG in NS 100 ML IV SCH (11:27)
[2017-01-29] MEDS: OXYBUTYNIN CHLORIDE 5 MG TABLET PO SCH ×2 (11:27→21:09)
[2017-01-29] MEDS: MULTIVITAMINS TAB 1 TABLET PO SCH (11:29)
[2017-01-29] MEDS ORDERED: CEFEPIME 1 GM in D5W 50 ML IV SCH (11:30)
[2017-01-29] MEDS: PANTOPRAZOLE SODIUM 40 MG/VIAL (PROTONIX) IVP SCH (11:31)
[2017-01-29] MEDS: FERROUS SULFATE 325 MG TABLET.DR PO SCH ×2 (11:33→21:08)
[2017-01-29] MEDS: CALCIUM CARBONATE/VITAMIN D3 1 TAB TABLET PO SCH ×2 (11:34→21:08)
[2017-01-29 11:46] VITALS: BP_SYST 142
[2017-01-29] MEDS: VANCOMYCIN HCL 750 MG in NS 250 ML IV SCH (12:10)
[2017-01-29 17:48] VITALS: BP_SYST 139
[2017-01-29] MEDS ORDERED: WARFARIN SODIUM 4 MG TABLET PO SCH (18:00)
[2017-01-29 20:00] VITALS: BP_SYST 141
[2017-01-29] MEDS: ZOLPIDEM TARTRATE 5 MG TABLET PO PRN (22:31)
[2017-01-29] MEDS: ACETAMINOPHEN 325 MG TABLET PO PRN (22:31)
[2017-01-30] VITALS (8 sets, daily range): BP systolic 113–138
[2017-01-30] MEDS: IPRATROPIUM/ALBUTEROL SULFATE 3 ML AMPUL.NEB INH SCH ×6 (03:00→23:13)
[2017-01-30 06:19] LABS: ALBUMIN 1.8 g/dL (3.4-4.8); CREATININE 1.3 mg/dL (0.55-1.30); POTASSIUM 3.4 mmol/L (3.5-5.1); TOTAL BILIRUBIN 0.5 mg/dL (0.0-1.0); TOTAL PROTEIN, SERUM 5.4 g/dL (6.4-8.3)
[2017-01-30 06:22] LABS: BASOPHILS % (AUTO) 0.2 % (0.0-2.0); EOSINOPHILS # (AUTO) 0.1 K/uL (0.0-0.4); EOSINOPHILS % (AUTO) 0.5 % (0.0-4.0); HEMATOCRIT 24.3 % (36-48); HEMOGLOBIN 7.7 g/dL (12.0-16.0); LYMPHOCYTES # (AUTO) 0.4 K/uL (1.0-5.5); MEAN CORPUSCULAR HEMOGLOBIN 27 pg (27-31); MEAN CORPUSCULAR HGB CONC 32 % (32-36); MEAN CORPUSCULAR VOLUME 86 fL (79.0-98.0); MONOCYTES # (AUTO) 1.1 K/uL (0.0-1.0); MONOCYTES % (AUTO) 5.8 % (1.7-9.3); NEUTROPHILS # (AUTO) 16.6 K/uL (1.8-7.7); NEUTROPHILS % (AUTO) 91.5 % (40.0-70.0); PLATELET COUNT (AUTO) 222 K/uL (130-430); RED BLOOD CELL COUNT(AUTO) 2.82 MIL/uL (4.2-6.2); RED CELL DISTRIBUTION WIDTH 17.5 % (9.0-15.0); WHITE BLOOD COUNT (AUTO) 18.2 K/uL (4.8-10.8)
[2017-01-30 06:49] LABS: PROTHROMBIN TIME 33.5 SECS (9.5-12.5)
[2017-01-30 07:32] LABS: CALCIUM 6.7 mg/dL (8.4-11.0)
[2017-01-30] MEDS: BUDESONIDE 0.5 MG/2 ML AMPUL.NEB INH SCH ×2 (08:58→23:13)
[2017-01-30] MEDS: DOCUSATE SODIUM 100 MG CAPSULE PO SCH ×2 (09:00→21:00)
[2017-01-30] MEDS: ASCORBIC ACID 500 MG TABLET PO SCH (10:03)
[2017-01-30] MEDS: PANTOPRAZOLE SODIUM 40 MG/VIAL (PROTONIX) IVP SCH (10:03)
[2017-01-30] MEDS: FERROUS SULFATE 325 MG TABLET.DR PO SCH ×2 (10:03→21:57)
[2017-01-30] MEDS: OXYBUTYNIN CHLORIDE 5 MG TABLET PO SCH ×2 (10:03→21:57)
[2017-01-30] MEDS: ACETAMINOPHEN 325 MG TABLET PO PRN (10:03)
[2017-01-30] MEDS: CALCIUM CARBONATE/VITAMIN D3 1 TAB TABLET PO SCH ×2 (10:03→21:57)
[2017-01-30] MEDS: MULTIVITAMINS TAB 1 TABLET PO SCH (10:03)
[2017-01-30] MEDS: MICAFUNGIN SODIUM 100 MG in NS 100 ML IV SCH (11:24)
[2017-01-30] MEDS: VANCOMYCIN HCL 750 MG in NS 250 ML IV SCH (13:07)
[2017-01-30] MEDS: MORPHINE 2 MG/ML INJ. SYRINGE IVP PRN ×2 (13:08→22:28)
[2017-01-30] MEDS: MEROPENEM 1 GM in NS 100 ML IV SCH ×2 (16:02→21:58)
[2017-01-30] MEDS ORDERED: WARFARIN SODIUM 2 MG TABLET PO SCH (18:00)
[2017-01-30] MEDS ORDERED: K PHOS 15 MM in NS 250 ML IV ONE (18:30)
[2017-01-31] MEDS: IPRATROPIUM/ALBUTEROL SULFATE 3 ML AMPUL.NEB INH SCH ×6 (03:00→23:46)
[2017-01-31 04:05] VITALS: BP_SYST 126
[2017-01-31] MEDS: MEROPENEM 1 GM in NS 100 ML IV SCH ×3 (05:58→21:50)
[2017-01-31 06:23] LABS: CREATININE 1.28 mg/dL (0.55-1.30); POTASSIUM 3.8 mmol/L (3.5-5.1)
[2017-01-31 06:30] LABS: BASOPHILS % (AUTO) 0.1 % (0.0-2.0); EOSINOPHILS # (AUTO) 0.1 K/uL (0.0-0.4); EOSINOPHILS % (AUTO) 0.8 % (0.0-4.0); HEMATOCRIT 23.7 % (36-48); HEMOGLOBIN 7.6 g/dL (12.0-16.0); LYMPHOCYTES # (AUTO) 0.8 K/uL (1.0-5.5); LYMPHOCYTES % (AUTO) 4.2 % (20.5-51.5); MEAN CORPUSCULAR HEMOGLOBIN 28 pg (27-31); MEAN CORPUSCULAR HGB CONC 32 % (32-36); MEAN CORPUSCULAR VOLUME 86 fL (79.0-98.0); MONOCYTES # (AUTO) 0.9 K/uL (0.0-1.0); MONOCYTES % (AUTO) 4.8 % (1.7-9.3); NEUTROPHILS # (AUTO) 16.6 K/uL (1.8-7.7); NEUTROPHILS % (AUTO) 90.1 % (40.0-70.0); PLATELET COUNT (AUTO) 221 K/uL (130-430); RED BLOOD CELL COUNT(AUTO) 2.75 MIL/uL (4.2-6.2); RED CELL DISTRIBUTION WIDTH 17.2 % (9.0-15.0); WHITE BLOOD COUNT (AUTO) 18.4 K/uL (4.8-10.8)
[2017-01-31 07:11] LABS: INR 3.4 (0.8-1.2); PROTHROMBIN TIME 38.8 SECS (9.5-12.5)
[2017-01-31 07:32] LABS: CALCIUM 6.7 mg/dL (8.4-11.0)
[2017-01-31 08:00] VITALS: BP_SYST 135
[2017-01-31] MEDS ORDERED: CALCIUM GLUCONATE 2 GM in NS 100 ML IV ONE ×2 (08:30→15:30)
[2017-01-31] MEDS ORDERED: CALCIUM GLUCONATE 1 GM/10 ML VIAL IVP ONE (08:30)
[2017-01-31] MEDS: CALCIUM CARBONATE/VITAMIN D3 1 TAB TABLET PO SCH ×2 (08:48→21:50)
[2017-01-31] MEDS: PANTOPRAZOLE SODIUM 40 MG/VIAL (PROTONIX) IVP SCH (08:48)
[2017-01-31] MEDS: FERROUS SULFATE 325 MG TABLET.DR PO SCH ×2 (08:48→21:50)
[2017-01-31] MEDS: ASCORBIC ACID 500 MG TABLET PO SCH (08:48)
[2017-01-31] MEDS: OXYBUTYNIN CHLORIDE 5 MG TABLET PO SCH ×2 (08:48→21:50)
[2017-01-31] MEDS: DOCUSATE SODIUM 100 MG CAPSULE PO SCH ×2 (08:48→21:50)
[2017-01-31] MEDS: MULTIVITAMINS TAB 1 TABLET PO SCH (08:48)
[2017-01-31] MEDS: BUDESONIDE 0.5 MG/2 ML AMPUL.NEB INH SCH ×2 (09:14→20:22)
[2017-01-31 11:15] VITALS: BP_SYST 154
[2017-01-31] MEDS: MICAFUNGIN SODIUM 100 MG in NS 100 ML IV SCH (11:48)
[2017-01-31] MEDS: VANCOMYCIN HCL 750 MG in NS 250 ML IV SCH (12:51)
[2017-01-31] MEDS ORDERED: MAGNESIUM SULFATE 4 GM in D5W 250 ML IV ONE (15:30)
[2017-01-31 16:16] VITALS: BP_SYST 132
[2017-01-31] MEDS: INSULIN ASPART 100 UNITS/ML, 10 ML VIAL (NovoLOG) SUBCUT PRN (17:07)
[2017-01-31 19:55] VITALS: BP_SYST 147
[2017-01-31 20:20] VITALS: BP_SYST 131
[2017-02-01] VITALS (7 sets, daily range): BP systolic 110–147
[2017-02-01] MEDS: MORPHINE 2 MG/ML INJ. SYRINGE IVP PRN (00:15)
[2017-02-01] MEDS: ZOLPIDEM TARTRATE 5 MG TABLET PO PRN ×2 (02:29→22:25)
[2017-02-01] MEDS: IPRATROPIUM/ALBUTEROL SULFATE 3 ML AMPUL.NEB INH SCH ×6 (03:00→23:30)
[2017-02-01] MEDS: MEROPENEM 1 GM in NS 100 ML IV SCH ×3 (06:43→22:27)
[2017-02-01 06:52] LABS: CALCIUM 7.1 mg/dL (8.4-11.0); CREATININE 1.27 mg/dL (0.55-1.30); POTASSIUM 3.7 mmol/L (3.5-5.1)
[2017-02-01 07:06] LABS: BASOPHILS # (AUTO) 0.1 K/uL (0.0-0.2); BASOPHILS % (AUTO) 0.6 % (0.0-2.0); EOSINOPHILS # (AUTO) 0.1 K/uL (0.0-0.4); EOSINOPHILS % (AUTO) 0.6 % (0.0-4.0); HEMATOCRIT 23.3 % (36-48); HEMOGLOBIN 7.5 g/dL (12.0-16.0); LYMPHOCYTES # (AUTO) 0.7 K/uL (1.0-5.5); MEAN CORPUSCULAR HEMOGLOBIN 28 pg (27-31); MEAN CORPUSCULAR HGB CONC 32 % (32-36); MEAN CORPUSCULAR VOLUME 86 fL (79.0-98.0); MONOCYTES # (AUTO) 0.7 K/uL (0.0-1.0); MONOCYTES % (AUTO) 4.1 % (1.7-9.3); NEUTROPHILS # (AUTO) 16.5 K/uL (1.8-7.7); NEUTROPHILS % (AUTO) 90.7 % (40.0-70.0); PLATELET COUNT (AUTO) 217 K/uL (130-430); RED BLOOD CELL COUNT(AUTO) 2.71 MIL/uL (4.2-6.2); RED CELL DISTRIBUTION WIDTH 17.2 % (9.0-15.0); WHITE BLOOD COUNT (AUTO) 18.1 K/uL (4.8-10.8)
[2017-02-01 07:09] LABS: INR 3.1 (0.8-1.2)
[2017-02-01 07:48] LABS: PROTHROMBIN TIME 34.4 SECS (9.5-12.5)
[2017-02-01] MEDS: BUDESONIDE 0.5 MG/2 ML AMPUL.NEB INH SCH ×2 (09:14→21:32)
[2017-02-01] MEDS: MULTIVITAMINS TAB 1 TABLET PO SCH (09:44)
[2017-02-01] MEDS: FERROUS SULFATE 325 MG TABLET.DR PO SCH ×2 (09:44→22:25)
[2017-02-01] MEDS: DOCUSATE SODIUM 100 MG CAPSULE PO SCH ×2 (09:44→22:24)
[2017-02-01] MEDS: ASCORBIC ACID 500 MG TABLET PO SCH (09:45)
[2017-02-01] MEDS: PANTOPRAZOLE SODIUM 40 MG/VIAL (PROTONIX) IVP SCH (09:45)
[2017-02-01] MEDS: OXYBUTYNIN CHLORIDE 5 MG TABLET PO SCH ×2 (09:45→22:25)
[2017-02-01] MEDS: CALCIUM CARBONATE/VITAMIN D3 1 TAB TABLET PO SCH ×2 (09:45→22:25)
[2017-02-01] MEDS: MICAFUNGIN SODIUM 100 MG in NS 100 ML IV SCH (10:04)
[2017-02-01] MEDS: VANCOMYCIN HCL 750 MG in NS 250 ML IV SCH (11:37)
[2017-02-02 00:22] VITALS: BP_SYST 148
[2017-02-02] MEDS: IPRATROPIUM/ALBUTEROL SULFATE 3 ML AMPUL.NEB INH SCH ×6 (03:15→23:11)
[2017-02-02 04:13] VITALS: BP_SYST 126
[2017-02-02] MEDS: MEROPENEM 1 GM in NS 100 ML IV SCH ×3 (05:54→21:07)
[2017-02-02 06:34] LABS: INR 3.1 (0.8-1.2)
[2017-02-02 06:43] LABS: CALCIUM 7.1 mg/dL (8.4-11.0); CREATININE 1.18 mg/dL (0.55-1.30); POTASSIUM 3.8 mmol/L (3.5-5.1)
[2017-02-02 06:44] LABS: WHITE BLOOD COUNT (AUTO) 19.8 K/uL (4.8-10.8)
[2017-02-02 06:54] LABS: HEMATOCRIT 23.2 % (36-48); HEMOGLOBIN 7.5 g/dL (12.0-16.0); MEAN CORPUSCULAR HEMOGLOBIN 28 pg (27-31); MEAN CORPUSCULAR HGB CONC 33 % (32-36); MEAN CORPUSCULAR VOLUME 86 fL (79.0-98.0); PLATELET COUNT (AUTO) 255 K/uL (130-430); RED CELL DISTRIBUTION WIDTH 17.3 % (9.0-15.0)
[2017-02-02 07:34] LABS: PROTHROMBIN TIME 34.9 SECS (9.5-12.5)
[2017-02-02 08:20] VITALS: BP_SYST 128; BP_SYST 156
[2017-02-02] MEDS: OXYBUTYNIN CHLORIDE 5 MG TABLET PO SCH ×2 (09:26→20:37)
[2017-02-02] MEDS: ASCORBIC ACID 500 MG TABLET PO SCH (09:26)
[2017-02-02] MEDS: MULTIVITAMINS TAB 1 TABLET PO SCH (09:26)
[2017-02-02] MEDS: DOCUSATE SODIUM 100 MG CAPSULE PO SCH ×2 (09:26→20:37)
[2017-02-02] MEDS: CALCIUM CARBONATE/VITAMIN D3 1 TAB TABLET PO SCH ×2 (09:26→20:37)
[2017-02-02] MEDS: FERROUS SULFATE 325 MG TABLET.DR PO SCH ×2 (09:26→20:37)
[2017-02-02] MEDS: PANTOPRAZOLE SODIUM 40 MG/VIAL (PROTONIX) IVP SCH (09:27)
[2017-02-02 09:43] LABS: ATYPICAL LYMPHOCYTES % 0 % (0-0); BAND % (MANUAL) 1 % (0-6); BASOPHILS % (MANUAL) 0 % (0-2); EOSINOPHILS % (MANUAL) 0 % (0-7); LYMPHOCYTES % (MANUAL) 3 % (20-46); MONOCYTES % (MANUAL) 4 % (0-11)
[2017-02-02 09:45] VITALS: BP_SYST 156
[2017-02-02] MEDS: BUDESONIDE 0.5 MG/2 ML AMPUL.NEB INH SCH ×2 (09:49→20:09)
[2017-02-02] MEDS: MICAFUNGIN SODIUM 100 MG in NS 100 ML IV SCH (10:47)
[2017-02-02] MEDS: VANCOMYCIN HCL 750 MG in NS 250 ML IV SCH (11:50)
[2017-02-02 12:56] VITALS: BP_SYST 139
[2017-02-02] MEDS ORDERED: K PHOS 15 MM in NS 250 ML IV ONE (14:15)
[2017-02-02] MEDS: INSULIN ASPART 100 UNITS/ML, 10 ML VIAL (NovoLOG) SUBCUT PRN (16:19)
[2017-02-02 16:32] VITALS: BP_SYST 142
[2017-02-02] MEDS: MAGNESIUM OXIDE 400 MG TABLET PO SCH (20:37)
[2017-02-02] MEDS: ACETAMINOPHEN 325 MG TABLET PO PRN (23:26)
[2017-02-03] VITALS (7 sets, daily range): BP systolic 127–150
[2017-02-03] MEDS: IPRATROPIUM/ALBUTEROL SULFATE 3 ML AMPUL.NEB INH SCH ×6 (03:35→23:12)
[2017-02-03] MEDS: MEROPENEM 1 GM in NS 100 ML IV SCH ×3 (05:52→22:29)
[2017-02-03 06:31] LABS: INR 3.2 (0.8-1.2)
[2017-02-03 06:42] LABS: HEMATOCRIT 23.3 % (36-48); HEMOGLOBIN 7.6 g/dL (12.0-16.0); MEAN CORPUSCULAR HEMOGLOBIN 28 pg (27-31); MEAN CORPUSCULAR HGB CONC 33 % (32-36); MEAN CORPUSCULAR VOLUME 86 fL (79.0-98.0); PLATELET COUNT (AUTO) 237 K/uL (130-430)
[2017-02-03 07:08] LABS: ALBUMIN 1.5 g/dL (3.4-4.8); CALCIUM 7.1 mg/dL (8.4-11.0); CREATININE 1.15 mg/dL (0.55-1.30); TOTAL BILIRUBIN 0.6 mg/dL (0.0-1.0); TOTAL PROTEIN, SERUM 5.3 g/dL (6.4-8.3)
[2017-02-03] MEDS: BUDESONIDE 0.5 MG/2 ML AMPUL.NEB INH SCH ×2 (07:09→20:50)
[2017-02-03 07:18] LABS: WHITE BLOOD COUNT (AUTO) 22.1 K/uL (4.8-10.8)
[2017-02-03 07:43] LABS: PROTHROMBIN TIME 36.6 SECS (9.5-12.5)
[2017-02-03] MEDS: ACETAMINOPHEN 325 MG TABLET PO PRN (08:37)
[2017-02-03] MEDS: DOCUSATE SODIUM 100 MG CAPSULE PO SCH ×2 (09:00→20:33)
[2017-02-03 09:32] LABS: ATYPICAL LYMPHOCYTES % 0 % (0-0); BAND % (MANUAL) 0 % (0-6); BASOPHILS % (MANUAL) 0 % (0-2); EOSINOPHILS % (MANUAL) 0 % (0-7); LYMPHOCYTES % (MANUAL) 3 % (20-46); MONOCYTES % (MANUAL) 5 % (0-11)
[2017-02-03] MEDS ORDERED: ACETAMINOPHEN 325 MG TABLET PO PRN (09:45)
[2017-02-03] MEDS ORDERED: LORazepam 2 MG/ML VIAL IVP PRN (09:45)
[2017-02-03] MEDS ORDERED: MAGNESIUM SULFATE 50 ML IV PRN (09:45)
[2017-02-03] MEDS ORDERED: POTASSIUM CHLORIDE 10 MEQ TAB.PRT.SR PO PRN (09:45)
[2017-02-03] MEDS ORDERED: ONDANSETRON HCL 4 MG/2 ML VIAL IVP PRN (09:45)
[2017-02-03] MEDS ORDERED: DOCUSATE SODIUM 100 MG CAPSULE PO PRN (09:45)
[2017-02-03] MEDS ORDERED: MORPHINE 2 MG/ML INJ. SYRINGE IVP PRN (09:45)
[2017-02-03] MEDS: OXYBUTYNIN CHLORIDE 5 MG TABLET PO SCH ×2 (10:38→20:32)
[2017-02-03] MEDS: FERROUS SULFATE 325 MG TABLET.DR PO SCH ×2 (10:38→20:32)
[2017-02-03] MEDS: MAGNESIUM OXIDE 400 MG TABLET PO SCH ×2 (10:38→20:33)
[2017-02-03] MEDS: MULTIVITAMINS TAB 1 TABLET PO SCH (10:38)
[2017-02-03] MEDS: PANTOPRAZOLE SODIUM 40 MG/VIAL (PROTONIX) IVP SCH (10:38)
[2017-02-03] MEDS: ASCORBIC ACID 500 MG TABLET PO SCH (10:38)
[2017-02-03] MEDS: CALCIUM CARBONATE/VITAMIN D3 1 TAB TABLET PO SCH ×2 (10:38→20:32)
[2017-02-03] MEDS: MICAFUNGIN SODIUM 100 MG in NS 100 ML IV SCH (11:32)
[2017-02-03] MEDS: VANCOMYCIN HCL 750 MG in NS 250 ML IV SCH (12:34)
[2017-02-03] MEDS: metroNIDAZOLE 250 mg/NS 50 ML IV SCH ×2 (13:50→21:51)
[2017-02-03] MEDS: ZOLPIDEM TARTRATE 5 MG TABLET PO PRN (22:29)
[2017-02-04] MEDS: IPRATROPIUM/ALBUTEROL SULFATE 3 ML AMPUL.NEB INH SCH ×6 (03:00→23:30)
[2017-02-04 04:13] VITALS: BP_SYST 146
[2017-02-04] MEDS: MEROPENEM 1 GM in NS 100 ML IV SCH (05:27)
[2017-02-04] MEDS: metroNIDAZOLE 250 mg/NS 50 ML IV SCH ×3 (06:01→22:13)
[2017-02-04 07:30] LABS: HEMOGLOBIN 7.3 g/dL (12.0-16.0)
[2017-02-04 07:43] LABS: MEAN CORPUSCULAR HEMOGLOBIN 29 pg (27-31); MEAN CORPUSCULAR HGB CONC 33 % (32-36); MEAN CORPUSCULAR VOLUME 85 fL (79.0-98.0); PLATELET COUNT (AUTO) 221 K/uL (130-430); RED BLOOD CELL COUNT(AUTO) 2.57 MIL/uL (4.2-6.2); RED CELL DISTRIBUTION WIDTH 16.6 % (9.0-15.0); WHITE BLOOD COUNT (AUTO) 21.3 K/uL (4.8-10.8)
[2017-02-04 07:49] LABS: HEMATOCRIT 21.9 % (36-48)
[2017-02-04 07:58] LABS: CALCIUM 7.1 mg/dL (8.4-11.0); CREATININE 1.13 mg/dL (0.55-1.30); PHOSPHORUS 2.1 mg/dL (2.7-4.5); POTASSIUM 3.9 mmol/L (3.5-5.1)
[2017-02-04 08:12] LABS: BASOPHILS % (MANUAL) 0 % (0-2); EOSINOPHILS % (MANUAL) 0 % (0-7); LYMPHOCYTES % (MANUAL) 3 % (20-46); MONOCYTES % (MANUAL) 3 % (0-11)
[2017-02-04] MEDS: CALCIUM CARBONATE/VITAMIN D3 1 TAB TABLET PO SCH ×2 (09:22→22:11)
[2017-02-04] MEDS: ASCORBIC ACID 500 MG TABLET PO SCH (09:22)
[2017-02-04] MEDS: FERROUS SULFATE 325 MG TABLET.DR PO SCH ×2 (09:22→22:11)
[2017-02-04] MEDS: PANTOPRAZOLE SODIUM 40 MG/VIAL (PROTONIX) IVP SCH (09:22)
[2017-02-04] MEDS: MULTIVITAMINS TAB 1 TABLET PO SCH (09:22)
[2017-02-04] MEDS: OXYBUTYNIN CHLORIDE 5 MG TABLET PO SCH ×2 (09:22→22:11)
[2017-02-04] MEDS: DOCUSATE SODIUM 100 MG CAPSULE PO SCH ×2 (09:22→22:11)
[2017-02-04] MEDS: MAGNESIUM OXIDE 400 MG TABLET PO SCH ×2 (09:22→22:11)
[2017-02-04 09:51] VITALS: BP_SYST 135
[2017-02-04] MEDS: ACETAMINOPHEN 325 MG TABLET PO PRN (10:54)
[2017-02-04 11:16] LABS: INR 3.2 (0.8-1.2)
[2017-02-04] MEDS: BUDESONIDE 0.5 MG/2 ML AMPUL.NEB INH SCH ×2 (11:19→21:33)
[2017-02-04 11:27] LABS: PROTHROMBIN TIME 36.3 SECS (9.5-12.5)
[2017-02-04 12:31] VITALS: BP_SYST 137
[2017-02-04] MEDS ORDERED: guaiFENesin/D-METHORPHAN HB 118 ML SUGAR FREE PO PRN (13:00)
[2017-02-04] MEDS: guaiFENesin 200 MG/CODEINE 20 MG/ 10 ML UDC PO PRN ×2 (13:36→17:56)
[2017-02-04] MEDS: VANCOMYCIN HCL 125 MG CAPSULE PO SCH ×3 (13:36→22:11)
[2017-02-04] MEDS: VANCOMYCIN HCL 750 MG in NS 250 ML IV SCH (13:37)
[2017-02-04] MEDS: INSULIN ASPART 100 UNITS/ML, 10 ML VIAL (NovoLOG) SUBCUT PRN (14:00)
[2017-02-04] MEDS ORDERED: MICAFUNGIN SODIUM 100 MG in NS 100 ML IV SCH (16:00)
[2017-02-04 16:29] VITALS: BP_SYST 140
[2017-02-04 19:40] VITALS: BP_SYST 136
[2017-02-04] MEDS: ZOLPIDEM TARTRATE 5 MG TABLET PO PRN (23:02)
[2017-02-05 00:45] VITALS: BP_SYST 157
[2017-02-05] MEDS: IPRATROPIUM/ALBUTEROL SULFATE 3 ML AMPUL.NEB INH SCH ×2 (03:00→07:45)
[2017-02-05 03:34] VITALS: BP_SYST 169
[2017-02-05] MEDS: metroNIDAZOLE 250 mg/NS 50 ML IV SCH (06:30)
[2017-02-05 07:45] VITALS: BP_SYST 137
[2017-02-05 08:04] LABS: CALCIUM 7.3 mg/dL (8.4-11.0); CREATININE 0.9 mg/dL (0.55-1.30); POTASSIUM 3.8 mmol/L (3.5-5.1)
[2017-02-05 08:06] LABS: HEMATOCRIT 31.5 % (36-48); HEMOGLOBIN 10.6 g/dL (12.0-16.0); MEAN CORPUSCULAR HEMOGLOBIN 29 pg (27-31); MEAN CORPUSCULAR HGB CONC 34 % (32-36); MEAN CORPUSCULAR VOLUME 85 fL (79.0-98.0); PLATELET COUNT (AUTO) 211 K/uL (130-430); RED CELL DISTRIBUTION WIDTH 15.1 % (9.0-15.0)
[2017-02-05 08:17] VITALS: BP_SYST 137
[2017-02-05 08:21] LABS: WHITE BLOOD COUNT (AUTO) 21.6 K/uL (4.8-10.8)
[2017-02-05] MEDS: CALCIUM CARBONATE/VITAMIN D3 1 TAB TABLET PO SCH (08:51)
[2017-02-05] MEDS: PANTOPRAZOLE SODIUM 40 MG/VIAL (PROTONIX) IVP SCH (08:51)
[2017-02-05] MEDS: MAGNESIUM OXIDE 400 MG TABLET PO SCH (08:51)
[2017-02-05] MEDS: DOCUSATE SODIUM 100 MG CAPSULE PO SCH (08:51)
[2017-02-05] MEDS: FERROUS SULFATE 325 MG TABLET.DR PO SCH (08:51)
[2017-02-05] MEDS: VANCOMYCIN HCL 125 MG CAPSULE PO SCH (08:51)
[2017-02-05] MEDS: ASCORBIC ACID 500 MG TABLET PO SCH (08:51)
[2017-02-05] MEDS: OXYBUTYNIN CHLORIDE 5 MG TABLET PO SCH (08:51)
[2017-02-05] MEDS: MULTIVITAMINS TAB 1 TABLET PO SCH (08:52)
[2017-02-05 09:10] LABS: INR 3.6 (0.8-1.2); PROTHROMBIN TIME 40.5 SECS (9.5-12.5)
[2017-02-05] MEDS: BUDESONIDE 0.5 MG/2 ML AMPUL.NEB INH SCH (09:19)
[2017-02-05 09:56] LABS: ATYPICAL LYMPHOCYTES % 0 % (0-0); BAND % (MANUAL) 4 % (0-6); LYMPHOCYTES % (MANUAL) 3 % (20-46)
[2017-02-05 09:57] LABS: BASOPHILS % (MANUAL) 0 % (0-2); EOSINOPHILS % (MANUAL) 0 % (0-7); MONOCYTES % (MANUAL) 4 % (0-11)
[2017-02-05 10:22] VITALS: BP_SYST 137
[2017-02-05 12:19] VITALS: BP_SYST 145
[2017-02-05] MEDS ORDERED: EPOETIN ALFA 4,000 UNITS/ML VIAL SUBCUT SCH (17:00)
== END 2017-02-05 11:36 | disposition hospice, home (50) | DRG 314 ==
LOC: SED 17:29 → STU 19:44
PROVIDERS: ADMIT Family Medicine; ATTEND Family Medicine
PROC: 30233N1 Transfusion of Nonautologous Red Blood Cells into Peripheral Vein, Percutaneous Approach (ICD-10-PCS; principal; 2017-01-19)
PROC: 0DB68ZX Excision of Stomach, Via Natural or Artificial Opening Endoscopic, Diagnostic (ICD-10-PCS; 2017-01-22)
PROC: 0DJD8ZZ Inspection of Lower Intestinal Tract, Via Natural or Artificial Opening Endoscopic (ICD-10-PCS; 2017-01-23)
DX: T80.211A Bloodstream infection due to central venous catheter, initial encounter (principal); A41.9 Sepsis, unspecified organism; N17.0 Acute kidney failure with tubular necrosis; E43 Unspecified severe protein-calorie malnutrition; J69.0 Pneumonitis due to inhalation of food and vomit; R65.21 Severe sepsis with septic shock; J15.6 Pneumonia due to other Gram-negative bacteria; E87.1 Hypo-osmolality and hyponatremia; K92.2 Gastrointestinal hemorrhage, unspecified; C79.51 Secondary malignant neoplasm of bone; B37.49 Other urogenital candidiasis; I82.402 Acute embolism and thrombosis of unspecified deep veins of left lower extremity; C90.00 Multiple myeloma not having achieved remission; A04.7 Enterocolitis due to Clostridium difficile; B37.81 Candidal esophagitis; E11.65 Type 2 diabetes mellitus with hyperglycemia; E83.51 Hypocalcemia; K20.9 Esophagitis, unspecified; D69.6 Thrombocytopenia, unspecified; E11.649 Type 2 diabetes mellitus with hypoglycemia without coma; C43.9 Malignant melanoma of skin, unspecified; D63.8 Anemia in other chronic diseases classified elsewhere; G89.29 Other chronic pain; K29.80 Duodenitis without bleeding; N18.9 Chronic kidney disease, unspecified; I12.9 Hypertensive chronic kidney disease with stage 1 through stage 4 chronic kidney disease, or unspecified chronic kidney disease; E11.22 Type 2 diabetes mellitus with diabetic chronic kidney disease; K64.8 Other hemorrhoids; K29.60 Other gastritis without bleeding; Y95 Nosocomial condition; N28.89 Other specified disorders of kidney and ureter; T70.29XA Other effects of high altitude, initial encounter; X58.XXXA Exposure to other specified factors, initial encounter; R13.10 Dysphagia, unspecified; F41.9 Anxiety disorder, unspecified; Y84.8 Other medical procedures as the cause of abnormal reaction of the patient, or of later complication, without mention of misadventure at the time of the procedure; Z92.3 Personal history of irradiation; Z91.19 Patient's noncompliance with other medical treatment and regimen; Z83.3 Family history of diabetes mellitus; Z88.2 Allergy status to sulfonamides; Z79.4 Long term (current) use of insulin; Z79.899 Other long term (current) drug therapy; Z68.28 Body mass index [BMI] 28.0-28.9, adult
CPT/HCPCS: 36415; 43239; 45378; 71010; 74250-TC; 76770; 80048; 80053; 80202-TC; 81000-TC; 82272; 82306; 82570-TC; 82728; 82962; 83010; 83605; 83615-TC; 83735-TC; 83970; 84100-TC; 84132-TC; 84302-TC; 84484; 85007; 85025; 85027; 85044-TC; 85610-TC; 85730-TC; 86886; 86900; 86901; 86920; 87040-TC; 87081; 87086; 87230-TC; 88305; 88312; 88313; 92610-GN; 93005; 93306; 93970; 94640; 94760; 96361; 96365; 96375; 97110-GP; 97530-GP; 99291; C9113; J0610; J0692; J0696; J0885; J1450; J1644; J1815; J1940; J2060; J2185; J2248; J2250; J2270; J2405; J2543; J3010; J3370; J3475; J3480; J3490; J7030; J7040; J7042; J7050; J7060; P9021; P9046; Q9963